=== PATIENT | female | born 1965 | race Caucasian/White ===

== ENCOUNTER 2018-07-12 08:15 | Day surgery (SDC) | payer MEDICARE, OTHER ==
[2018-07-12] MEDS ORDERED: PROPOFOL 10 MG/ML VIAL IV ONE (08:16)
--- NOTE | 2018-07-12 15:10 | Operative Note ---
DATE OF SURGERY: 07/12/2018 OPERATION: Failed COLONOSCOPY secondary to poor colon preparation. INDICATION: Severe rectal pain and fecal incontinence. ANESTHESIA: Intravenous sedation was administered by the department of anesthesiology and included Diprivan titrated to effect. PROCEDURE: Following informed consent from this alert individual including a discussion of the risks and benefits of the procedure and an opportunity for the patient to ask questions, the patient was in the left lateral decubitus position. A digital rectal examination was performed. There was lack of anal sphincter tone noted. Following this, the Olympus [id number] video colonoscope was inserted into the rectum without resistance. The rectal mucosa was obscured by retained solid stool. The colonoscope was advanced up into the sigmoid colon where again retained solid stool was noted throughout. From this point, the colonoscope was then withdrawn. The patient tolerated the procedure well and was returned to the recovery area in stable condition. IMPRESSION: Poor colon preparation with retained solid stool noted as above. RECOMMENDATIONS: The patient will have repeat colonoscopy arranged with additional colon preparation and also to attempt to avoid narcotic analgesics if able during that period of time. As always, thank you for allowing me to participate in the care of your patient. CC: DO VANESSA Sarabia
== END 2018-07-12 09:50 | disposition home or self-care (01) ==
LOC: HOP 08:15
PROVIDERS: ATTEND Internal Medicine Gastroenterology
DX: K62.89 Other specified diseases of anus and rectum (principal); R15.9 Full incontinence of feces; E78.00 Pure hypercholesterolemia, unspecified; Z53.09 Procedure and treatment not carried out because of other contraindication

== ENCOUNTER 2019-03-12 04:19 | Observation (INO) | payer MEDICARE, OTHER ==
[2019-03-12] MEDS ORDERED: 0.9 % SODIUM CHLORIDE 1000ML 1,000 ML IV SCH (04:45)
--- NOTE | 2019-03-12 04:49 | Emergency Department Record ---
History of Present Illness - General Chief Complaint: Shortness of breath Stated Complaint: OSBALDO Time Seen by Provider: 03/12/19 04:36 Source: Patient Mode of Arrival: Ambulatory Limitations: No limitations - History of Present Illness Initial Comments: 53 yo female presents to ED for evaluation of shortness of breath that began this morning. Patient reports "I feel as though I can't catch my breath", reports that she feels dizzy and "weird". Patient denies chest pain or discomfort, denies previous heart or lung problems. Patient reports a history of lower extremity swelling left leg "for years following my knee surgery". Patient denies previous known history of DVT/PE. MD Complaint: Shortness of breath Onset/Timin -: Hour(s) Severity: Moderate Consistency: Constant Improves With: Upright position Worsens With: Lying flat Context: Anxiety Associated Symptoms: Palpitations Treatments Prior to Arrival: None Treatment Prior to Arrival Comment:: CLONOPIN - Related Data Home Oxygen Therapy: No Home Medications Medication Instructions Recorded Confirmed Last Taken Furosemide [Lasix] 20 mg PO ASDIR PRN 03/12/19 03/12/19 Unknown Allergies Allergy/AdvReac Type Severity Reaction Status Date / Time prochlorperazine edisylate Allergy Unknown HIVES Unverified 01/20/17 16:02 [From [employer]] prochlorperazine maleate Allergy Unknown HIVES Unverified 01/20/17 16:02 [From [employer]] Travel Screening - Travel/Exposure Within Last 30 Days Have you traveled within the last 30 days?: No - Travel Symptoms Symptom Screening: None Review of Systems Constitutional: Denies: Chills, Fever, Malaise, Night sweats Eyes: Denies: Eye discharge, Eye pain ENT: Denies: Congestion, Ear pain, Epistaxis Respiratory: Reports: Dyspnea. Denies: Cough, Hemoptysis Cardiovascular: Reports: Dyspnea on exertion, Palpitations. Denies: Chest pain , Edema Endocrine: Denies: Fatigue, Heat or cold intolerance Gastrointestinal: Denies: Abdominal pain, Nausea, Vomiting Genitourinary: Denies: Incontinence, Retention Musculoskeletal: Denies: Arthralgia, Back pain Skin: Denies: Bruising, Change in color Neurological: Denies: Abnormal gait, Confusion, Headache, Seizure Psychiatric: Reports: Anxiety Hematological/Lymphatic: Denies: Anemia, Blood Clots Past Medical History - SOCIAL HISTORY Smoking Status: Never smoker Alcohol Use: None Drug Use: None - RESPIRATORY Hx Respiratory Disorders: No - CARDIOVASCULAR Hx Cardio Disorders: Yes Hx Cardiac Cath: Yes (was just checked due to family hx, and presurgical, has always been normal) Hx Hypertension: Yes (kidney protection, no longer takes rx after weight loss) Hx Irregular Heartbeat: No (.) Comment:: last heart cath 2006, fair exercise due to RA/knees, reports heart is good - NEURO Hx Neuro Disorders: No - GI Hx GI Disorders: Yes Hx Reflux: Yes Comment:: rectal pain, fecal incontinece - Hx Genitourinary Disorders: Yes Hx Bladder Problem: Yes (hesitancy) Hx UTI: Yes (hx) - ENDOCRINE Hx Endocrine Disorders: Yes Hx Diabetes: Yes (Type II, hx) Comment:: no longer takes diabetes meds due to weight loss - MUSCULOSKELETAL Hx Musculoskeletal Disorders: Yes Hx Arthritis: Yes (RA) Hx Fibromyalgia: Yes - PSYCH Hx Psych Problems: Yes Hx Anxiety: Yes Hx Behavior Problems: Yes ([employer]) Hx Depression: No (denies) Comment:: panic - HEMATOLOGY/ONCOLOGY Hx Hematology/Oncology Disorders: No Family Medical History Any Significant Family History?: Yes *Cancer Comment: aunt-colon/throat cancer Hx Diabetes: Mother Hx Heart Disease: Mother Hx HTN: Mother, Brother/Sister Hx Kidney Disease: Mother Physical Exam - General General Appearance: Alert, Cooperative, Moderate distress Limitations: Other (Patient answers questions appropriately, however does appear sedated/intoxicated on examination.) - Head Head exam: Atraumatic, Normocephalic, Normal inspection Head exam detail: negative: Abrasion, Contusion, Mcmanus's sign, General tenderness, Hematoma, Laceration - Eye Eye exam: Other (pinpoint pupils on examination). negative: Conjunctival injection, Periorbital swelling, Periorbital tenderness, Scleral icterus - ENT Ear exam: negative: Auricular hematoma, Auricular trauma Nasal Exam: negative: Active bleeding, Discharge, Dried blood, Foreign body Mouth exam: negative: Drooling, Laceration, Muffled voice, Tongue elevation - Neck Neck exam: Normal inspection. negative: Meningismus, Tenderness - Respiratory Respiratory exam: Decreased breath sounds. negative: Rales, Respiratory distress, Rhonchi, Stridor - Cardiovascular Cardiovascular Exam: Normal rhythm, Normal heart sounds, Tachycardia - GI/Abdominal GI/Abdominal exam: Soft. negative: Rebound, Rigid, Tenderness - Rectal Rectal exam: Deferred - exam: Deferred - Extremities Extremities exam: Tenderness, Other (Swelling to the left lower extremity>Right lower extremity) - Back Back exam: Denies: CVA tenderness (R), CVA tenderness (L) - Neurological Neurological exam: Alert, Normal gait, Oriented X3 - Psychiatric Psychiatric exam: Normal affect, Normal mood - Skin Skin exam: Normal color. negative: Abrasion Type of lesion: negative: abrasion Course Vital Signs 03/12/19 04:23 Pulse Rate [ 131 H Pulse Ox Probe] Respiratory 24 Rate Blood Pressure 172/98 [Left Arm] Pulse Ox 97 - Reevaluation(s) Reevaluation #1: 03/12/19 04:48 EKG: Sinus Tachycardia 126 Normal axis, normal intervals Artifact present, No acute ST-T wave changes are present. Reevaluation #2: 03/12/19 05:21 CTA chest was reviewed (preliminary) and appears negative for an acute PE, dissection. Laboratory studies were reviewed and are grossly unremarkable for an acute process. Patient is currently still in CT, will reassess upon return. Reevaluation #3: 03/12/19 05:44 CTA Chest: No PE, no focal consolidation Patient was updated on all results thus far, will admit for further evaluation. Reevaluation #4: 03/12/19 06:51 Case was discussed with Monica Blake VP C[facility], will accept admission at this time. Medical Decision Making - Lab Data Result diagrams: 03/12/19 04:38 03/12/19 04:38 Disposition Disposition: Admit Clinical Impression: Tachycardia Dyspnea Qualifiers: Dyspnea type: shortness of breath Qualified Code(s): R06.02 - Shortness of breath Disposition: Still a Patient at [facility] Decision to Admit: Admit from ER Decision to Admit Date: 03/12/19 Decision to Admit Time: 05:46 Condition: (2) Stable Time of Disposition: 05:46 Quality - Quality Measures Quality Measures: N/A - Blood Pressure Screening Does Patient Have Any of the Following: No Blood Pressure Classification: Pre-Hypertensive BP Reading Systolic Measurement: 120 Diastolic Measurement: 70 Screening for High Blood Pressure: < Pre-Hypertensive BP, F/U Documented > [ [id number]] Pre-Hypertensive Follow-up Interventions: Referral to alternative/primary care provider.
[2019-03-12 04:59] LABS: HEMATOCRIT 39.5 % (35.0-47.0); HEMOGLOBIN 12.6 gm/dl (11.6-16.0); MEAN CELL VOLUME 93.8 fl (81-97); MEAN CORPUSCULAR HEMOGLOBIN 29.9 pg (27-33); MEAN CORPUSCULAR HGB CONC 31.9 g/dl (32-36); MEAN PLATELET VOLUME 10.3 fl (7.4-10.4); PLATELET COUNT 258 K/uL (130-400); RED BLOOD COUNT 4.21 M/uL (3.80-5.40); RED CELL DISTRIBUTION WIDTH 13.5 % (11.5-14.5); WHITE BLOOD COUNT W/O DIFF 6.5 K/uL (4.2-12.2)
[2019-03-12 05:01] LABS: URINE APPEARANCE CLEAR; URINE BILIRUBIN NEGATIVE (NEGATIVE); URINE BLOOD NEGATIVE (NEGATIVE); URINE COLOR YELLOW; URINE KETONE 15 mg/dL (NEGATIVE); URINE LEUKOCYTE ESTERASE TRACE (NEGATIVE); URINE NITRITE NEGATIVE (NEGATIVE); URINE PROTEIN NEGATIVE (NEGATIVE); URINE UROBILINOGEN 0.2 E.U./dL (0.20 - 1.00)
[2019-03-12 05:06] LABS: AMPHETAMINE SCREEN URINE NOT DETECTED; BARBITURATE SCREEN URINE NOT DETECTED; BENZODIAZEPINE SCREEN URINE NOT DETECTED; COCAINE SCREEN URINE NOT DETECTED; METHADONE SCREEN URINE NOT DETECTED; METHAMPHETAMINE SCREEN NOT DETECTED; OPIATE SCREEN URINE NOT DETECTED; OXYCODONE SCREEN URINE DETECTED; PHENCYCLIDINE SCREEN URINE NOT DETECTED; PROPOXYPHENE SCREEN URINE NOT DETECTED; THC SCREEN URINE NOT DETECTED; TRICYCLIC ANTIDEPRESSANT SCRN DETECTED
[2019-03-12 05:08] LABS: BLOOD UREA NITROGEN 20 mg/dL (6-20); CREATININE 0.5 mg/dL (0.5-0.9); EST GLOMERULAR FILTRATION RATE > 60 mL/min
[2019-03-12 05:09] LABS: TOTAL PROTEIN 7.9 g/dL (6.6-8.7)
[2019-03-12 05:10] LABS: URINE EPITHELIAL CELLS 0 - 2 (FEW); URINE RBC NONE SEEN (NONE SEEN); URINE WBC 0 - 2 (0-2/hpf)
[2019-03-12 05:11] LABS: GLUCOSE,RANDOM 166 mg/dL (74-109)
[2019-03-12 05:14] LABS: ALB/GLOB RATIO 1.3 (1.1-1.8); ALBUMIN 4.4 g/dL (4.0-5.0); ALKALINE PHOSPHATASE 103 U/L (35-104); ALT/SGPT 32 U/L (<33); AST/SGOT 49 U/L (10.0-35.0)
[2019-03-12 05:16] LABS: NTpro B-NATRIURETIC PEPTIDE 5.89 pg/mL (<125)
[2019-03-12 05:19] LABS: ANISOCYTOSIS 1+; PLATELET ESTIMATE NORMAL (NORMAL)
[2019-03-12] MEDS ORDERED: FUROSEMIDE 20 MG TABLET PO PRN (06:40)
[2019-03-12] MEDS: CLONAZEPAM 1MG TABLET PO SCH ×3 (09:47→22:02)
[2019-03-12] MEDS ORDERED: OXYCODONE MYRISTATE 27 MG PO SCH (10:00)
[2019-03-12] MEDS ORDERED: DIVALPROEX SODIUM 500 MG PO SCH (10:00)
[2019-03-12 10:16] LABS: THYROID STIMULATING HORMONE 5.6 uIU/mL (0.270-4.20)
[2019-03-12] MEDS ORDERED: CLONAZEPAM 1MG TABLET PO SCH (11:15)
[2019-03-12] MEDS: CEFTRIAXONE SODIUM 1 GM in 0.9 % SODIUM CHLORIDE 100ML 100 ML IVPB SCH ×2 (11:31→23:29)
[2019-03-12] MEDS: OXYCODONE SR 10 MG TAB.ER.12H PO SCH ×2 (11:32→23:28)
[2019-03-12] MEDS: DIVALPROEX SODIUM 500 MG TABLET ER PO SCH (11:32)
[2019-03-12] MEDS: 0.9 % SODIUM CHLORIDE 1000ML 1,000 ML IV PRN ×2 (11:40→23:43)
--- NOTE | 2019-03-12 18:59 | History & Physical ---
History of Present Illness - Date of Service Date of Service for History & Physical: 03/12/19 - History of Present Illness Admitting Diagnosis: Dyspnea. Palpitations. Altered LOC History of Present Illness: Yolette Colmenares is a 53 y/o female presenting to ED for complaints of shortness of breath that began early this am. She stated it felt like she could not catch her breath and felt dizzy. Also complained of her vision being fuzzy and pain with focusing on an object. She also reported left leg swelling from a previous knee surgery but denies any previous history of DVT/PE , clotting disorder. She denies any previous cardiac disorders. She reports the last time she felt this way was when she found out she had a mass in her sinuses that had to be removed in [id number]. Denies migraines or seizure disorder. She does take sedating medications but reports has had not recent changes to doses and denies illicit drug use. Past medical history includes HTN now resolved since gastric bypass in 2001, OA and RA, GERD, fecal incontinence, urine hesitancy, DM-2 diet controlled, anxiety an bipolar disorder. While in ED CBC unremarkable except neutrophils 37 and lymphcytes 50, sodium 135 , potassium 4.7, AST 49, troponin <0.010, U/A + glucose, ketones, trace leukocytes, -WBC. UDS + for oxcontin and tricyclic, chest CTA negative for PE, BNP normal. EKG report a-fib although visualization of report does show p-waves with an irratic rhythm. Admitted for observation as she was very lethargic in ED and slow to respond, difficulty forming thoughts. 03/12/19 1100- Laying in bed, visible difficulty keeping eyes open, reports her vision is blurry and hurts her eyes to focus on an object. Speech slightly slurred, trouble completing full thoughts. Did report her history of same symptoms when she found out her sinuses had a mass in them. She does currently complain of maxillary sinus pain and right ear pain. She denies chest pain, palpitations, or hx of a-fib. Telemetry strips have been NSR since arrival to floor. PCP: Dr Christy Travel Screening - Travel/Exposure Within Last 30 Days Have you traveled within the last 30 days?: No - Travel/Exposure Within Last Year Have you traveled outside the [place] in the last year?: No - Additonal Travel Details Have you been exposed to anyone with a communicable illness?: No - Travel Symptoms Symptom Screening: None Review of Systems Constitutional: Denies: Chills, Fever, Malaise, Night sweats Eyes: Denies: Eye discharge, Eye pain ENT: Reports: Ear pain, Other (maxillary facial pain L>R). Denies: Congestion, Epistaxis Respiratory: Reports: Dyspnea. Denies: Cough, Hemoptysis Cardiovascular: Reports: Dyspnea on exertion, Palpitations. Denies: Chest pain , Edema Endocrine: Denies: Fatigue, Heat or cold intolerance Gastrointestinal: Denies: Abdominal pain, Nausea, Vomiting Genitourinary: Denies: Incontinence, Retention Musculoskeletal: Denies: Arthralgia, Back pain Skin: Denies: Bruising, Change in color Neurological: Denies: Abnormal gait, Confusion, Headache, Seizure Psychiatric: Reports: Anxiety Hematological/Lymphatic: Denies: Anemia, Blood Clots Past Medical History - SOCIAL HISTORY Smoking Status: Never smoker Alcohol Use: None Drug Use: None - RESPIRATORY Hx Respiratory Disorders: No - CARDIOVASCULAR Hx Cardio Disorders: Yes Hx Cardiac Cath: Yes (was just checked due to family hx, and presurgical, has always been normal) Hx Hypertension: Yes (kidney protection, no longer takes rx after weight loss) Hx Irregular Heartbeat: No (.) Comment:: last heart cath 2006, fair exercise due to RA/knees, reports heart is good - NEURO Hx Neuro Disorders: No - GI Hx GI Disorders: Yes Hx Reflux: Yes Comment:: rectal pain, fecal incontinece - Hx Genitourinary Disorders: Yes Hx Bladder Problem: Yes (hesitancy) Hx UTI: Yes (hx) - ENDOCRINE Hx Endocrine Disorders: Yes Hx Diabetes: Yes (Type II, hx) Comment:: no longer takes diabetes meds due to weight loss - MUSCULOSKELETAL Hx Musculoskeletal Disorders: Yes Hx Arthritis: Yes (RA) Hx Fibromyalgia: Yes - PSYCH Hx Psych Problems: Yes Hx Anxiety: Yes Hx Behavior Problems: Yes (BiPolar) Hx Depression: No (denies) Comment:: panic - HEMATOLOGY/ONCOLOGY Hx Hematology/Oncology Disorders: No Family Medical History Any Significant Family History?: Yes *Cancer Comment: aunt-colon/throat cancer Hx Diabetes: Mother Hx Heart Disease: Mother Hx HTN: Mother, Brother/Sister Hx Kidney Disease: Mother H&P Meds/Allergies - Allergies Allergies: Allergies Allergy/AdvReac Type Severity Reaction Status Date / Time prochlorperazine edisylate Allergy Unknown HIVES Unverified 01/20/17 16:02 [From [employer]] prochlorperazine maleate Allergy Unknown HIVES Unverified 01/20/17 16:02 [From [employer]] - Home Medications Home Medications Medication Instructions Recorded Confirmed Last Taken Furosemide [Lasix] 20 mg PO ASDIR PRN 03/12/19 03/12/19 Unknown - Active Medications Active Medications: Current Medications Clonazepam (Klonopin) 1 mg PO Q12H [facility] Last Admin: 03/12/19 11:24 Dose: Not Given Divalproex Sodium (Depakote Er) 1,000 mg PO DAILY [facility] Last Admin: 03/12/19 11:32 Dose: 1,000 mg Furosemide (Lasix) 20 mg PO ASDIR PRN PRN Reason: SWELLING Sodium Chloride () 1,000 mls @ 100 mls/hr IV .Q10H PRN PRN Reason: LARGE VOLUME IV Last Admin: 03/12/19 11:40 Dose: 100 mls/hr Ceftriaxone Sodium 1 gm/ (Sodium Chloride) 100 mls @ 200 mls/hr IVPB Q12H [facility] Stop: 03/17/19 11:16 Last Infusion: 03/12/19 12:00 Dose: Infused Oxycodone HCl (Oxycontin) 30 mg PO Q12H [facility] Last Admin: 03/12/19 11:32 Dose: 30 mg Simvastatin (Zocor) 10 mg PO QHS [facility] Physical Exam - Vital Signs Vital Signs: Vital Signs - Last 24 Hrs Temp Pulse Pulse Resp BP BP Pulse Ox 03/12/19 16:00 97.9 F 89 16 153/93 98 03/12/19 09:00 114 H 20 03/12/19 08:00 97.9 F 92 H 16 127/85 96 03/12/19 06:40 97.2 F L 99 H 18 125/77 96 03/12/19 06:29 99 H 20 120/70 93 L 03/12/19 05:36 112 H 20 134/77 96 03/12/19 04:23 131 H 24 172/98 97 - General General Appearance: Alert, Cooperative, Other (lethargic) Limitations: Other (Patient answers questions appropriately, however does appear sedated/intoxicated on examination.) - Head Head exam: Atraumatic, Normocephalic, Normal inspection Head exam detail: negative: Abrasion, Contusion, Mcmanus's sign, General tenderness, Hematoma, Laceration - Eye Eye exam: PERRL, EOMI, Other (pinpoint pupils on examination, fundal exam normal ). negative: Conjunctival injection, Periorbital swelling, Periorbital tenderness, Scleral icterus - ENT ENT exam: Other (right TM erythemtous, bulging, tender with exam) Ear exam: negative: Auricular hematoma, Auricular trauma Nasal Exam: Other (turbinates erythematous, engorged, maxillary sinus tenderness L>R). negative: Active bleeding, Discharge, Dried blood, Foreign body Mouth exam: negative: Drooling, Laceration, Muffled voice, Tongue elevation Throat exam: Other (pharyngeal erythema) - Neck Neck exam: Normal inspection. negative: Meningismus, Tenderness - Respiratory Respiratory exam: Normal lung sounds bilaterally. negative: Rales, Respiratory distress, Rhonchi, Stridor - Cardiovascular Cardiovascular Exam: Regular rate, Normal rhythm, Normal heart sounds Peripheral Pulses: 2+: Radial (R), Radial (L), Dorsalis Pedis (R), Dorsalis Pedis (L) - GI/Abdominal GI/Abdominal exam: Soft, Normal bowel sounds. negative: Rebound, Rigid, Tenderness - Rectal Rectal exam: Deferred - exam: Deferred - Extremities Extremities exam: Tenderness, Other (Swelling to the left lower extremity>Right lower extremity) - Back Back exam: Denies: CVA tenderness (R), CVA tenderness (L) - Neurological Neurological exam: Alert, Normal gait, Oriented X3 - Skin Skin exam: Normal color. negative: Abrasion Type of lesion: negative: abrasion Results - Labs Result Diagrams: 03/12/19 04:38 03/12/19 04:38 Labs Last 24 Hours: Laboratory Results - last 24 hr 03/12/19 03/12/19 03/12/19 04:38 04:38 04:46 WBC 6.5 RBC 4.21 Hgb 12.6 Hct 39.5 MCV 93.8 MCH 29.9 MCHC 31.9 L RDW 13.5 Plt Count 258 MPV 10.3 Neutrophils % 37.0 L Band Neutrophils % 1.0 Eosinophils % Not Reportable Basophils % Not Reportable Lymphocytes 50.0 H Monocytes 9.0 Platelet Estimate Normal Anisocytosis 1+ Eosinophil Count 3.0 Sodium 135 L Potassium 4.7 H Chloride 98 Carbon Dioxide 24.0 Anion Gap 13.0 BUN 20 Creatinine 0.5 Estimated GFR > 60 Random Glucose 166 H Calcium 9.3 Total Bilirubin 0.30 AST 49 H ALT 32 Alkaline Phosphatase 103 Troponin T < 0.010 NT-Pro-B Natriuret Pep 5.89 Total Protein 7.9 Albumin 4.4 Globulin 3.5 Albumin/Globulin Ratio 1.3 TSH 5.60 H Urine Color Urine Appearance Urine pH Ur Specific [place] Urine Protein Urine Glucose (UA) Urine Ketones Urine Blood Urine Nitrite Urine Bilirubin Urine Urobilinogen Ur Leukocyte Esterase Urine RBC Urine WBC Ur Epithelial Cells Urine Opiates Screen Ur Oxycodone Screen Urine Methadone Screen Ur Propoxyphene Screen Ur Barbituates Screen Valproic Acid 69.0 Ur Tricyclics Screen Ur Phencyclidine Scrn Ur Amphetamine Screen U Methamphetamines Scrn U Benzodiazepines Scrn Urine Cocaine Screen Urine Cannabis Screen 03/12/19 03/12/19 03/12/19 12:37 Unknown Unknown WBC RBC Hgb Hct MCV MCH MCHC RDW Plt Count MPV Neutrophils % Band Neutrophils % Eosinophils % Basophils % Lymphocytes Monocytes Platelet Estimate Anisocytosis Eosinophil Count Sodium Potassium Chloride Carbon Dioxide Anion Gap BUN Creatinine Estimated GFR Random Glucose Calcium Total Bilirubin AST ALT Alkaline Phosphatase Troponin T < 0.010 NT-Pro-B Natriuret Pep Total Protein Albumin Globulin Albumin/Globulin Ratio TSH Urine Color Yellow Urine Appearance Clear Urine pH 6.0 Ur Specific [place] 1.020 Urine Protein Negative Urine Glucose (UA) 100 mg/dl H Urine Ketones 15 mg/dl H Urine Blood Negative Urine Nitrite Negative Urine Bilirubin Negative Urine Urobilinogen 0.2 Ur Leukocyte Esterase Trace H Urine RBC None seen Urine WBC 0 - 2 Ur Epithelial Cells 0 - 2 Urine Opiates Screen Not detected Ur Oxycodone Screen Detected Urine Methadone Screen Not detected Ur Propoxyphene Screen Not detected Ur Barbituates Screen Not detected Valproic Acid Ur Tricyclics Screen Detected Ur Phencyclidine Scrn Not detected Ur Amphetamine Screen Not detected U Methamphetamines Scrn Not detected U Benzodiazepines Scrn Not detected Urine Cocaine Screen Not detected Urine Cannabis Screen Not detected - Imaging and Cardiology CT scan - chest Status: Report reviewed (negative for PE) VTE H&P Assessment - Risk for VTE Risk for VTE: Yes Risk Level: Low Risk Assessment Date: 03/12/19 Risk Assessment Time: 19:01 VTE Orders Placed or Will Be Placed: Yes Plan - Detailed Diagnosis and Plan (1) Altered mental status Current Visit: Yes Status: Acute Base Code: R41.82 - ALTERED MENTAL STATUS, UNSPECIFIED Comment: 03/12/19 - Unclear etiology - UDS + oxycodone and tricyclics ( she denies taking tricyclics) - 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 - Neurologically intact and normal - Depakote level, TSH today - Decrease Klonopin to BID to improve sedate state - Hold Oxycodone until mentation improves - Decrase Klonopin to BID until mentation clears - Head CT today (2) Otitis media Current Visit: Yes Status: Acute Qualifiers: Otitis media type: suppurative Laterality: right Recurrence: non- recurrent Spontaneous tympanic membrane rupture: without spontaneous rupture Base Code: H66.90 - OTITIS MEDIA, UNSPECIFIED, UNSPECIFIED EAR Comment: - Rochepin 1gm BID (3) Maxillary sinusitis, acute Current Visit: Yes Status: Acute Base Code: J01.00 - ACUTE MAXILLARY SINUSITIS, UNSPECIFIED Comment: 03/12/19 - Head CT to cover frontal sinus for preliminary examination, r/o sinus mass - Rocephin 1gm BID (4) Tachycardia Current Visit: Yes Status: Acute Base Code: R00.0 - TACHYCARDIA, UNSPECIFIED Comment: 03/12/19 - May be sequel of suspected tricyclic toxicity - EKG in ED showed a-fib- each QRS did have a p wave, irratic rate - Tele has been NSR since admit, HRRR on examination - Will repeat EKG in the am (5) DVT prophylaxis Current Visit: Yes Status: Acute Base Code: [id number] - Comment: 03/12/19 - Nursing to encourage frequent ambulation (6) Full code status Current Visit: Yes Status: Acute Base Code: Z78.9 - OTHER SPECIFIED HEALTH STATUS Comment: 03/12/19
[2019-03-12] MEDS ORDERED: SIMVASTATIN 10MG TABLET PO SCH (22:00)
[2019-03-13] MEDS: CEFTRIAXONE SODIUM 1 GM in 0.9 % SODIUM CHLORIDE 100ML 100 ML IVPB SCH ×2 (10:18→23:18)
[2019-03-13] MEDS: DIVALPROEX SODIUM 500 MG TABLET ER PO SCH (10:19)
[2019-03-13] MEDS: CLONAZEPAM 1MG TABLET PO SCH ×3 (10:19→22:04)
[2019-03-13] MEDS: OXYCODONE SR 10 MG TAB.ER.12H PO SCH ×2 (10:19→23:17)
[2019-03-13] MEDS: 0.9 % SODIUM CHLORIDE 1000ML 1,000 ML IV PRN ×2 (12:02→22:45)
[2019-03-13] MEDS ORDERED: ACETAMINOPHEN 500 MG TABLET PO PRN (18:01)
--- NOTE | 2019-03-13 21:08 | Physician Progress Note ---
Subjective - Date Date of Physician Progress Note: 03/13/19 - Subjective Subjective Comment: Patient reports she is feeling better today, much more clear thinking. Nursing reports she has been much less lethargic speech has cleared. Maxillary sinus pain has improved as well as light sensitivity and pain with focusing. She did report today that she takes Flexeril 10mg TID at home which will explain the + tricyclics in her UDS. She denies taking any other medications or doubling up on any of her home meds that could explain the acute change in her cognition with the appearance of being intoxicated. She did report to me at the time she called the ambulance prior to arrival she was having one of the worse panic attacks she has ever had. Reports history of but has not had a panic attack since the . She admits to a higher level of stress then usual at home at the present time. Objective - Vital Signs Vital Signs: Vital Signs - Last 24 Hrs Temp Pulse Pulse Resp BP Pulse Ox 03/13/19 16:00 97.9 F 111 H 16 127/79 96 03/13/19 09:00 104 H 16 03/13/19 08:00 97.9 F 82 16 125/76 96 03/12/19 22:30 98.7 F 93 H 18 140/79 97 - General General Appearance: Alert, Oriented x3, Cooperative Limitations: No limitations - Head Head exam: Atraumatic, Normocephalic, Normal inspection Head exam detail: negative: Abrasion, Contusion, Mcmanus's sign, General tenderness, Hematoma, Laceration - Eye Eye exam: PERRL, EOMI, Other (pinpoint pupils on examination, fundal exam normal ). negative: Conjunctival injection, Periorbital swelling, Periorbital tenderness, Scleral icterus - ENT ENT exam: Other (right TM erythemtous, bulging, tender with exam) Ear exam: negative: Auricular hematoma, Auricular trauma Nasal Exam: Other (turbinates erythematous, engorged, maxillary sinus tenderness L>R). negative: Active bleeding, Discharge, Dried blood, Foreign body Mouth exam: negative: Drooling, Laceration, Muffled voice, Tongue elevation Throat exam: Other (pharyngeal erythema) - Neck Neck exam: Normal inspection. negative: Meningismus, Tenderness - Respiratory Respiratory exam: Normal lung sounds bilaterally. negative: Rales, Respiratory distress, Rhonchi, Stridor - Cardiovascular Cardiovascular Exam: Regular rate, Normal rhythm, Normal heart sounds Peripheral Pulses: 2+: Radial (R), Radial (L), Dorsalis Pedis (R), Dorsalis Pedis (L) - GI/Abdominal GI/Abdominal exam: Soft, Normal bowel sounds. negative: Rebound, Rigid, Tenderness - Rectal Rectal exam: Deferred - exam: Deferred - Extremities Extremities exam: Tenderness, Other (Swelling to the left lower extremity>Right lower extremity) - Back Back exam: Denies: CVA tenderness (R), CVA tenderness (L) - Neurological Neurological exam: Alert, Normal gait, Oriented X3 - Psychiatric Psychiatric exam: Normal affect, Normal mood - Skin Skin exam: Normal color. 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 - Neurologically intact and normal - Depakote level normal, TSH 5.06, will start on low dose Levothyroxine - Decrease Klonopin to BID to improve sedate state - Hold Oxycodone until mentation improves - Klonopin increased to usual home dosing of TID without any additional lethargy - Head CT without acute process or sinus mass (2) Otitis media Current Visit: Yes Status: Acute Qualifiers: Otitis media type: suppurative Laterality: right Recurrence: non- recurrent Spontaneous tympanic membrane rupture: without spontaneous rupture Base Code: H66.90 - OTITIS MEDIA, UNSPECIFIED, UNSPECIFIED EAR Comment: - Rochepin 1gm BID (3) Maxillary sinusitis, acute Current Visit: Yes Status: Acute Base Code: J01.00 - ACUTE MAXILLARY SINUSITIS, UNSPECIFIED Comment: 03/13/19 - Head CT to cover frontal sinus for preliminary examination, r/o sinus mass- negative - Rocephin 1gm BID (4) Tachycardia Current Visit: Yes Status: Acute Base Code: R00.0 - TACHYCARDIA, UNSPECIFIED Comment: 03/13/19 - May be sequel of suspected tricyclic toxicity - EKG in ED showed a-fib- each QRS did have a p wave, irratic rate - Tele has been NSR since admit, HRRR on examination - Repeat EG NSR (5) DVT prophylaxis Current Visit: Yes Status: Acute Base Code: [id number] - Comment: 03/13/19 - Nursing to encourage frequent ambulation (6) Full code status Current Visit: Yes Status: Acute Base Code: Z78.9 - OTHER SPECIFIED HEALTH STATUS Comment: 03/13/19 Results - Labs Result Diagrams: 03/12/19 04:38 03/12/19 04:38 DVT/PE Assessment - Risk for VTE Risk for VTE: No Risk Level: Low Risk Assessment Date: 03/12/19 Risk Assessment Time: 19:01 VTE Orders Placed or Will Be Placed: Yes - Active Medicaitons Current Medications: Current Medications Acetaminophen (Tylenol 500mg Tab) 1,000 mg PO Q6H PRN PRN Reason: PAIN - MILD TO MODERATE (1-7) Last Admin: 03/13/19 18:04 Dose: 1,000 mg Clonazepam (Klonopin) 1 mg PO TID YVONNE Last Admin: 03/13/19 16:58 Dose: 1 mg Divalproex Sodium (Depakote Er) 1,000 mg PO DAILY YVONNE Last Admin: 03/13/19 10:19 Dose: 1,000 mg Furosemide (Lasix) 20 mg PO ASDIR PRN PRN Reason: SWELLING Sodium Chloride () 1,000 mls @ 100 mls/hr IV .Q10H PRN PRN Reason: LARGE VOLUME IV Last Admin: 03/13/19 12:02 Dose: 100 mls/hr Ceftriaxone Sodium 1 gm/ (Sodium Chloride) 100 mls @ 200 mls/hr IVPB Q12H YVONNE Stop: 03/17/19 11:16 Last Infusion: 03/13/19 10:50 Dose: Infused Levothyroxine Sodium (Synthroid) 25 mcg PO DAILYTHY YVONNE Oxycodone HCl (Oxycontin) 30 mg PO Q12H YVONNE Last Admin: 03/13/19 10:19 Dose: 30 mg Quetiapine Fumarate (Seroquel) 25 mg PO QHS [facility] Plan - Labs Result Diagrams: 03/12/19 04:38 03/12/19 04:38
[2019-03-13] MEDS ORDERED: QUETIAPINE FUMARATE 25 MG TABLET PO SCH (22:00)
[2019-03-14 06:51] LABS: HEMATOCRIT 37.4 % (35.0-47.0); HEMOGLOBIN 11.6 gm/dl (11.6-16.0); MEAN CELL VOLUME 95.7 fl (81-97); MEAN CORPUSCULAR HEMOGLOBIN 29.7 pg (27-33); MEAN PLATELET VOLUME 10.3 fl (7.4-10.4); PLATELET COUNT 237 K/uL (130-400); RED BLOOD COUNT 3.91 M/uL (3.80-5.40); RED CELL DISTRIBUTION WIDTH 13.4 % (11.5-14.5); WHITE BLOOD COUNT W/O DIFF 4.5 K/uL (4.2-12.2)
[2019-03-14] MEDS ORDERED: LEVOTHYROXINE SODIUM 175 MCG TABLET PO SCH (07:00)
[2019-03-14 07:06] LABS: BLOOD UREA NITROGEN 9 mg/dL (6-20); CREATININE 0.4 mg/dL (0.5-0.9); EST GLOMERULAR FILTRATION RATE > 60 mL/min; GLUCOSE,RANDOM 135 mg/dL (74-109)
[2019-03-14 07:35] LABS: PLATELET ESTIMATE NORMAL (NORMAL)
--- NOTE | 2019-03-14 07:54 | CT ANGIOGRAM REPORT ---
EXAM: CT ANGIOGRAM OF THE CHEST WITH CONTRAST HISTORY: DYSPNEA TODAY. TECHNIQUE: Standard CT angiography of the chest was performed with post processing following the bolus administration of 77 ml of Omnipaque 350. Additional coronal and sagittal maximum intensity projection reformatted images were performed on an independent workstation under concurrent supervision. Comparison: 09/02/13. FINDINGS: There is mild breathing motion artifact. The pulmonary arterial tree is otherwise unremarkable. There is no evidence for pulmonary embolism. The heart is normal in size. The aorta is normal in caliber without dissection. There is no mediastinal or hilar lymphadenopathy. There is minor dependent atelectasis within both lungs. The lungs are otherwise clear. There is no pneumothorax or effusion. The chest wall and axillary regions are normal. There is hepatomegaly and steatosis. The patient is status post gastric bypass surgery. The upper abdomen is otherwise unremarkable. IMPRESSION: 1. NO EVIDENCE FOR PULMONARY EMBOLUS OR OTHER ACUTE CARDIOPULMONARY PROCESS. 2. HEPATOMEGALY AND STEATOSIS. [facility]BER: [id number] [facility]
--- NOTE | 2019-03-14 07:59 | CT SCAN REPORT ---
EXAM: CT SCAN OF THE BRAIN WITHOUT CONTRAST HISTORY: DIZZINESS AND CONFUSION. ALTERED MENTAL STATUS. SYMPTOMS FOR THE PAST DAY. HISTORY OF PREVIOUS SINUS MASS. TECHNIQUE: Standard CT imaging of the brain was performed in the axial plane without contrast. Additional coronal and sagittal reformatted images were also performed. Comparison: 10/05/08. FINDINGS: The ventricles and subarachnoid spaces are normal. There is no mass , mass effect, intracranial hemorrhage, visible acute infarct, or abnormal extraaxial fluid. Dural calcifications are present along the falx. There is mild hyperostosis frontalis internus. The skull is intact. Post surgical changes are present within the right nasal cavity and maxillary sinus. Mucosal thickening is present within the ethmoid and right maxillary sinuses. No sinus mass or acute air fluid levels are identified. The orbits and mastoids are normal. IMPRESSION: 1. NO ACUTE INTRACRANIAL ABNORMALITY. 2. POST SURGICAL CHANGES WITHIN THE NASAL CAVITY AND RIGHT MAXILLARY SINUS. 3. CHRONIC MUCOSAL THICKENING WITHIN THE ETHMOID AND RIGHT MAXILLARY SINUSES. JOB NUMBER: [id number] [facility]
[2019-03-14] MEDS: CLONAZEPAM 1MG TABLET PO SCH (09:18)
[2019-03-14] MEDS ORDERED: CEFTRIAXONE 1GM/50ML BAG 1 GM/50 ML BAG IVPB SCH (10:00)
[2019-03-14] MEDS ORDERED: DIVALPROEX SODIUM 500 MG TABLET ER PO SCH (10:00)
[2019-03-14] MEDS ORDERED: OXYCODONE SR 10 MG TAB.ER.12H PO SCH (10:00)
--- NOTE | 2019-03-14 10:56 | Discharge Summary ---
Providers Discharge Summary Date: 03/14/19 Date of admission: 03/12/19 06:33 Expected Date of Discharge: 03/14/19 Attending physician: SUZANNE NAVARRO Primary care physician: KAILEE GERBER D.O. Physical Exam - Vital Signs Vital Signs: Vital Signs - Last 24 Hrs Temp Pulse Pulse Resp BP BP Pulse Ox 03/14/19 09:00 97.9 F 91 H 16 136/81 97 03/14/19 07:48 74 20 03/14/19 01:00 98.1 F 96 H 18 135/77 96 03/13/19 21:00 77 16 03/13/19 16:00 97.9 F 111 H 16 127/79 96 - General General Appearance: Alert, Oriented x3, Cooperative Limitations: No limitations - Head Head exam: Atraumatic, Normocephalic, Normal inspection Head exam detail: negative: Abrasion, Contusion, Mcmanus's sign, General tenderness, Hematoma, Laceration - Eye Eye exam: PERRL, EOMI, Other (pinpoint pupils on examination, fundal exam normal ). negative: Conjunctival injection, Periorbital swelling, Periorbital tenderness, Scleral icterus - ENT ENT exam: Normal exam Ear exam: negative: Auricular hematoma, Auricular trauma Nasal Exam: negative: Active bleeding, Discharge, Dried blood, Foreign body Mouth exam: negative: Drooling, Laceration, Muffled voice, Tongue elevation - Neck Neck exam: Normal inspection. negative: Meningismus, Tenderness - Respiratory Respiratory exam: Normal lung sounds bilaterally. negative: Rales, Respiratory distress, Rhonchi, Stridor - Cardiovascular Cardiovascular Exam: Regular rate, Normal rhythm, Normal heart sounds Peripheral Pulses: 2+: Radial (R), Radial (L), Dorsalis Pedis (R), Dorsalis Pedis (L) - GI/Abdominal GI/Abdominal exam: Soft, Normal bowel sounds. negative: Rebound, Rigid, Tenderness - Rectal Rectal exam: Deferred - exam: Deferred - Extremities Extremities exam: Tenderness, Other (Swelling to the left lower extremity>Right lower extremity) - Back Back exam: Denies: CVA tenderness (R), CVA tenderness (L) - Neurological Neurological exam: Alert, Normal gait, Oriented X3 - Psychiatric Psychiatric exam: Normal affect, Normal mood - Skin Skin exam: Normal color. negative: Abrasion Type of lesion: negative: abrasion Hospitalization - Hospitalization Admission Diagnosis: Dyspnea. Palpitations. 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 - Neurologically intact and normal - Depakote level normal, TSH 5.06, will start on low dose Levothyroxine - Decrease Klonopin to BID to improve sedate state - Hold Oxycodone until mentation improves - Klonopin increased to usual home dosing of TID without any additional lethargy - Head CT without acute process or sinus mass (2) Otitis media Current Visit: Yes Status: Acute Discharge Diagnosis: Otitis media type: suppurative Laterality: right Recurrence: non- recurrent Spontaneous tympanic membrane rupture: without spontaneous rupture Base Code: H66.90 - OTITIS MEDIA, UNSPECIFIED, UNSPECIFIED EAR Comment: - Rochepin 1gm BID (3) Maxillary sinusitis, acute Current Visit: Yes Status: Acute Base Code: J01.00 - ACUTE MAXILLARY SINUSITIS, UNSPECIFIED Comment: 03/13/19 - Head CT to cover frontal sinus for preliminary examination, r/o sinus mass- negative - Rocephin 1gm BID (4) Tachycardia Current Visit: Yes Status: Acute Base Code: R00.0 - TACHYCARDIA, UNSPECIFIED Comment: 03/13/19 - May be sequel of suspected tricyclic toxicity - EKG in ED showed a-fib- each QRS did have a p wave, irratic rate - Tele has been NSR since admit, HRRR on examination - Repeat EG NSR (5) DVT prophylaxis Current Visit: Yes Status: Acute Base Code: [id number] - Comment: 03/13/19 - Nursing to encourage frequent ambulation (6) Full code status Current Visit: Yes Status: Acute Base Code: Z78.9 - OTHER SPECIFIED HEALTH STATUS Comment: 03/13/19 - Hospitalization Course Procedures: Imaging and X-Rays 03/12/19 04:42 CHEST CTA w contrast [CTA] Stat 03/12/19 11:29 HEAD WO CONTRAST [CT] Stat Cardiology Procedures 03/12/19 04:30 EKG NOW 03/12/19 06:40 Adoption Worker .Continuous 03/13/19 08:00 EKG ONCE Abnormal Labs: Abnormal Lab Results 03/12/19 03/12/19 03/12/19 Range/Units 04:38 04:38 04:46 MCHC 31.9 L (32-36) g/dl Neutrophils % 37.0 L (47-80) % Lymphocytes 50.0 H (16-45) % Monocytes (0-9) % Sodium 135 L (136-145) mmol/L Potassium 4.7 H (3.4-4.5) mmol/L Carbon Dioxide (22-29) mmol/L Creatinine (0.5-0.9) mg/dL Random Glucose 166 H (74-109) mg/dL AST 49 H (10.0-35.0) U/L TSH 5.60 H (0.270-4.20) uIU/mL Urine Glucose (UA) (NEGATIVE) Urine Ketones (NEGATIVE) Ur Leukocyte Esterase (NEGATIVE) 03/12/19 03/14/19 03/14/19 Range/Units Unknown 06:23 06:23 MCHC 31.0 L (32-36) g/dl Neutrophils % 30.0 L (47-80) % Lymphocytes 58.0 H (16-45) % Monocytes 10.0 H (0-9) % Sodium (136-145) mmol/L Potassium (3.4-4.5) mmol/L Carbon Dioxide 30.0 H (22-29) mmol/L Creatinine 0.4 L (0.5-0.9) mg/dL Random Glucose 135 H (74-109) mg/dL AST (10.0-35.0) U/L TSH (0.270-4.20) uIU/mL Urine Glucose (UA) 100 mg/dl H (NEGATIVE) Urine Ketones 15 mg/dl H (NEGATIVE) Ur Leukocyte Esterase Trace H (NEGATIVE) Condition at Discharge: (2) Stable Discharge Medications - Discharge Medications Prescriptions: Amoxicillin/Potassium Clav [Augmentin 875-125 Tablet] 1 each PO BID #20 tablet Levothyroxine Sodium [Synthroid] 25 mcg PO DAILYTHY #30 tab Home Medications: Ambulatory Orders Clonazepam [Klonopin] 1 mg PO TID 09/21/14 [Last Taken 03/11/19] Quetiapine Fumarate [Seroquel] 400 mg PO QHS 09/21/14 [Last Taken 03/11/19] Cyclobenzaprine HCl [Flexeril] 10 mg PO TID 05/25/18 [Last Taken 03/11/19] Ferrous Sulfate [Iron] 325 mg PO BID 05/25/18 [Last Taken 03/11/19] Multivitamin [Multi-Vitamin Daily] 1 each PO BID 05/25/18 [Last Taken 03/11/19] Oxycodone Myristate [Xtampza ER] 27 mg PO BID 05/25/18 [Last Taken 03/11/19] Furosemide [Lasix] 20 mg PO ASDIR PRN 03/12/19 [Last Taken Unknown] Amoxicillin/Potassium Clav [Augmentin 875-125 Tablet] 1 each PO BID #20 tablet 03/14/19 [Last Taken Unknown] Cholecalciferol (Vitamin D3) [Vitamin D3] 2,000 unit PO BID 03/14/19 [Last Taken Unknown] Divalproex Sodium [Depakote ER] 1,000 mg PO BID 03/14/19 [Last Taken Unknown] Levothyroxine Sodium 25 mcg PO DAILY 03/14/19 [Last Taken Unknown] Levothyroxine Sodium [Synthroid] 25 mcg PO DAILYTHY #30 tab 03/14/19 [Last Taken Unknown] Naloxegol Oxalate [Movantik] 25 mg PO DAILY PRN 03/14/19 [Last Taken Unknown] Oxycodone HCl/Acetaminophen [Oxycodone/Acetaminophen 10mg/325mg] 1 tab PO BID PRN 03/14/19 [Last Taken Unknown] Discharge Plan - Discharge Instructions Activity at Discharge: Increase Activity as Tolerated Diet at Discharge: Regular Diet Instructions: Sinusitis (GEN), Hypothyroidism (DC), Otitis Media (DC) Additional Instructions: Your blood sugars have been slightly elevated and there was noted some glucose in your urine- follow up with your family doctor in 1 week regarding this New diagnosis of hypothyroidism on this admission, Levothyroxine initiated. Take one synthroid tablet daily before breakfast. Omnicef 300 mg by mouth twice a day. Start tonight Resume home meds. Diet and activity as tolerated. Quality Measures - Quality Measures Quality Measures: Documentation of Current Medications in Medical Record, Screening for High Blood Pressure and F/U Documented - Current Medications Quality Measure: Measure #130: Documentation of Current Medications Documentation of Current Medications: <Current Medications Documented/Reviewed> [G8427] - Blood Pressure Screening Quality Measure: Screening for High Blood Pressure and Follow-Up Documented Does Patient Have Any of the Following: No Blood Pressure Classification: Pre-Hypertensive BP Reading Systolic Measurement: 136 Diastolic Measurement: 81 Screening for High Blood Pressure: < Pre-Hypertensive BP, F/U Documented > [ G8950] Pre-Hypertensive Follow-up Interventions: Follow-up with rescreen every year. - Elder Abuse Suspicion Index EASI Reference Information: Trisha LIMON, Radha C, Milton D, Leo Junior.Development and validation of a tool to assist physicians identification of elder abuse: The Elder Abuse Suspicion Index (EASI ). Journal of Elder Abuse and Neglect, 2008; 20 (3): 276-300.
[2019-03-14] MEDS ORDERED: QUETIAPINE FUMARATE 100 MG TABLET PO SCH (22:00)
[2019-03-15] MEDS ORDERED: LEVOTHYROXINE SODIUM 25 MCG TABLET PO SCH (07:00)
== END 2019-03-14 12:30 | disposition home or self-care (01) ==
LOC: ER 04:19 → MEDSURG 06:33
PROVIDERS: ADMIT Internal Medicine; ATTEND Internal Medicine
DX: R41.82 Altered mental status, unspecified (principal); R00.2 Palpitations; H66.90 Otitis media, unspecified, unspecified ear; J01.00 Acute maxillary sinusitis, unspecified; R00.0 Tachycardia, unspecified; I10 Essential (primary) hypertension; M06.9 Rheumatoid arthritis, unspecified; R15.9 Full incontinence of feces; K21.9 Gastro-esophageal reflux disease without esophagitis; M79.7 Fibromyalgia; F31.9 Bipolar disorder, unspecified; F41.9 Anxiety disorder, unspecified; F41.0 Panic disorder [episodic paroxysmal anxiety]; Z98.61 Coronary angioplasty status; Z90.49 Acquired absence of other specified parts of digestive tract; Z86.39 Personal history of other endocrine, nutritional and metabolic disease
CPT/HCPCS: 70450; 71275; 80048; 80053; 80164; 80305; 81001; 83880; 84443; 84484; 85027; 93005; 93010; 99217; 99220; 99225; 99285; J0696; J7030

== ENCOUNTER 2019-03-28 09:20 | Day surgery (SDC) | payer MEDICARE, OTHER ==
[2019-03-28] MEDS ORDERED: FENTANYL PF 100MCG/2ML VIAL IV ONE (09:21)
[2019-03-28] MEDS ORDERED: PROPOFOL 10 MG/ML VIAL IV ONE (09:21)
[2019-03-28] MEDS ORDERED: LIDOCAINE 2% MDV (20MG/ML) 20ML VIAL IV ONE (09:21)
--- NOTE | 2019-03-29 08:30 | Operative Note ---
OPERATION: ESOPHAGOGASTRODUODENOSCOPY. INDICATION: Episodic epigastric pain. Upper endoscopy is performed at this time for further evaluation. ANESTHESIA: Intravenous sedation was administered by the department of anesthesiology and included Diprivan titrated to effect. PROCEDURE: Following informed consent from this alert individual, including a discussion of the risks and benefits of the procedure and an opportunity for the patient to ask questions, the patient was in the left lateral decubitus position. The Olympus [id number] video endoscope was inserted into the esophagus without resistance. The proximal esophagus had a normal appearance with normal folds and distensibility. The mid and distal esophagus likewise was free from changes. The squamocolumnar junction was smooth and well defined and approximated the diaphragmatic hiatus. The structure was traversed and the stomach was entered. There was a gastric pouch noted from prior Ken-en-Y gastric bypass surgery. The pouch itself was free from mucosal changes. The gastrojejunal junction was endoscopically normal as well. The endoscope was advanced down the jejunum which likewise appeared to be free from change. The endoscope was then withdrawn back through the gastric pouch and esophagus and removed from the patient. She tolerated the procedure well and was returned to the recovery area in stable condition. IMPRESSION: Normal Ken-en-Y gastric bypass. RECOMMENDATION: The patient will also undergo colonoscopy at this time. She has failed to have a complete exam in the past due to poor preparation. As always, thank you for allowing me to participate in the care of your patient. CC: DO VANESSA Sarabia
--- NOTE | 2019-03-29 08:30 | Operative Note ---
OPERATION: Attempted COLONOSCOPY, failed colonoscopy secondary to poor prep. PROCEDURE: Following informed consent from this alert individual including a discussion of the risks and benefits of the procedure and an opportunity for the patient to ask questions, the patient was in the left lateral decubitus position. A digital examination was performed. No abnormalities were noted. Following this, the Olympus [id number] video endoscope was inserted into the rectum without resistance. The rectal mucosa was coated with some solid stool. Advancing the colonoscope into the sigmoid colon also was met with retained stool circumferentially about the bowel. Visualization was not possible. From this point, the colonoscope was then withdrawn. The patient tolerated the procedure well and was returned to the recovery area in stable condition. IMPRESSION: Failed colonoscopy secondary to poor prep. RECOMMENDATIONS: The patient will be given instructions for a 2-day prep with nightly MiraLax for the week prior to her examination and citrate of magnesium prior to starting the colon preparation. Followup will also be with Suman Christy DO. As always, thank you for allowing me to participate in the care of your patient. CC: Suman Christy DO [facility]ITALGudelia
== END 2019-03-28 10:54 | disposition home or self-care (01) ==
LOC: HOP 09:20
PROVIDERS: ATTEND Internal Medicine Gastroenterology
DX: Z12.11 Encounter for screening for malignant neoplasm of colon (principal); Z53.09 Procedure and treatment not carried out because of other contraindication; R10.13 Epigastric pain; Z98.84 Bariatric surgery status; R11.0 Nausea; R60.9 Edema, unspecified